=== PATIENT | female | born 2000 | race Caucasian/White ===

== ENCOUNTER 2024-10-13 13:55 | Emergency (ER) | payer BC ==
[2024-10-13 14:32] LABS: Bacteria/HPF None Seen HPF (None Seen); Bilirubin Negative (Negative); Blood, Urine Negative (Negative); CAUTI Indications for Culture Dysuria,urgency,freq; Clarity Clear (Clear); Glucose, Urine (Dipstick) Normal (Negative); Ketone, Urine Trace mg/dL (Negative); Leukocyte Negative Leu/uL (Negative); Nitrite Negative (Negative); Protein, Urine (Dipstick) Negative (Neg-Trace); RBC/HPF 0-3 HPF (0-3); Specific Gravity, Urine 1.025 (1.002-1.036); Urobilinogen Normal mg/dL (Less than 2); WBC/HPF 0-3 HPF (0-3); pH, Urine 5.5 (5.0-9.0)
[2024-10-13] MEDS ORDERED: Cephalexin 250 MG CAP ONE (14:42)
[2024-10-13] MEDS ORDERED: Ketorolac Tromethamine 30 MG (1 mL) VIAL ONE ×2 (14:42→14:46)
[2024-10-13 14:44] LABS: Urine Culture Reflex No No
== END 2024-10-13 14:52 | disposition home or self-care (01) ==
LOC: ERS 13:55
DX: O91.22 Nonpurulent mastitis associated with the puerperium (principal)
CPT/HCPCS: 81001; 96372; 99283; J1885